=== PATIENT | male | born 1980 | race African-American/Black ===

== ENCOUNTER 2017-06-04 11:20 | Emergency (ER) | payer SELFPAY ==
[2017-06-04] MEDS ORDERED: Nitroglycerin 2% Ointment 1 INCH/1 GM Packet ONE (12:17)
[2017-06-04 12:37] LABS: #Eosinphils 0.2 thou/uL (0.0-0.7); #Lymphocytes 2.9 thou/uL (1.20-3.40); #Monocytes 0.7 thou/uL (0.11-0.59); #Neutrophils 4.7 thou/uL (1.40-6.50); %Basophils 0.4 % (0.0-1.0); %Eosinophils 2.7 % (0.0-10.0); %Lymphocytes 33.5 % (21.0-51.0); %Monocytes 8.5 % (0.0-10.0); Hematocrit 51.5 % (42.0-52.0); Mean Platelet Volume 8.7 fL (7.4-10.4); Red Blood Cell (RBC) Count 5.95 mill/uL (4.70-6.10); White Blood Cell (WBC) Count 8.6 thou/uL (4.8-10.8)
[2017-06-04 13:08] LABS: ALT (SGPT) 9 U/L (8-55); AST (SGOT) 15 U/L (5-34); Alkaline Phosphatase 96 U/L (40-150); Anion Gap 9 mmol/L (10-20); BUN (Urea Nitrogen) 12 mg/dL (8.9-20.6); Bilirubin, Total 0.3 mg/dL (0.2-1.2); CK (CPK) 241 U/L (30-200); Calc. Creatinine Clearance 0 mL/min (70-130); Calcium 9.2 mg/dL (7.8-10.44); Carbon Dioxide 28 mmol/L (22-29); Chloride 102 mmol/L (98-107); Estimated GFR-MDRD Greater than 90; Globulin 3.8 g/dL (2.4-3.5); Protein, Total 7.9 g/dL (6.0-8.3)
[2017-06-04 13:10] LABS: Troponin I 0.011 ng/mL (< 0.028)
[2017-06-04 14:16] LABS: Bilirubin Negative (Negative); Blood, Urine Negative (Negative); Glucose, Urine (Dipstick) Negative (Negative); Ketone, Urine Negative (Negative); Nitrite Negative (Negative); Protein, Urine (Dipstick) Negative (Neg-Trace)
[2017-06-04 14:30] LABS: Amphetamine Not Detected (NotDetected); Methadone Not Detected (NotDetected); Methamphetamine Detected (NotDetected)
--- NOTE | 2017-06-04 15:23 | CT ---
HEAD CT WITHOUT CONTRAST: Date: 06/04/17 COMPARISON: None. HISTORY: Left-sided weakness, high blood pressure, left frontal headache. TECHNIQUE: Serial axial CT imaging at 5 mm intervals from vertex through skull base without contrast. FINDINGS: Imaged paranasal sinuses and mastoid air cells are well aerated. There is no displaced calvarial frac ture. There is no intracranial hemorrhage, midline shift, mass effect, or ventricular enlargement. IMPRESSION: No intracranial hemorrhage or displaced calvarial fracture. POS: [facility]
== END 2017-06-04 14:40 | disposition home or self-care (01) ==
LOC: ERS 11:20
DX: F12.10 Cannabis abuse, uncomplicated (principal); F14.10 Cocaine abuse, uncomplicated; F16.10 Hallucinogen abuse, uncomplicated; I10 Essential (primary) hypertension; F17.210 Nicotine dependence, cigarettes, uncomplicated
CPT/HCPCS: 70450; 80053; 80306; 81003; 82553; 84484; 85025; 93005; 99406

== ENCOUNTER 2017-12-23 18:59 | Emergency (ER) | payer SELFPAY | END 2017-12-23 19:55 | LOC: ERS 18:59 | DX: F16.10 Hallucinogen abuse, uncomplicated (principal); I10 Essential (primary) hypertension; F17.210 Nicotine dependence, cigarettes, uncomplicated; Z71.6 Tobacco abuse counseling | CPT/HCPCS: 99406 ==

== ENCOUNTER 2017-12-30 22:16 | Emergency (ER) | payer SELFPAY | END 2017-12-30 23:51 | LOC: ERS 22:16 | DX: F16.10 Hallucinogen abuse, uncomplicated (principal); I10 Essential (primary) hypertension; F17.210 Nicotine dependence, cigarettes, uncomplicated; Z71.6 Tobacco abuse counseling | CPT/HCPCS: 93005; 99406 ==

== ENCOUNTER 2018-01-02 20:37 | Emergency (ER) | payer SELFPAY | END 2018-01-02 21:30 | disposition home or self-care (01) | LOC: ERS 20:37 | DX: I10 Essential (primary) hypertension (principal); F17.210 Nicotine dependence, cigarettes, uncomplicated; Z71.6 Tobacco abuse counseling | CPT/HCPCS: 93005 ==

== ENCOUNTER 2018-02-06 20:17 | Emergency (ER) | payer SELFPAY ==
[2018-02-06] MEDS ORDERED: Lorazepam 2 MG/ML VIAL ONE (20:47)
[2018-02-06 21:08] LABS: #Basophils 0.1 thou/uL (0.0-0.2); #Eosinphils 0.2 thou/uL (0.0-0.7); #Lymphocytes 3.2 thou/uL (1.20-3.40); #Monocytes 0.7 thou/uL (0.11-0.59); #Neutrophils 4.3 thou/uL (1.40-6.50); %Basophils 1.4 % (0.0-1.0); %Eosinophils 2.2 % (0.0-10.0); %Lymphocytes 37.8 % (21.0-51.0); %Monocytes 8.3 % (0.0-10.0); %Neutrophils 50.4 % (42.0-75.0); Hemoglobin 15.6 g/dL (14.0-18.0); Mean Corpuscular HGB CONC 33.6 g/dL (32.0-36.0); Mean Corpuscular Hemoglobin 27.3 pg (27.0-31.0); Mean Corpuscular Volume 81.2 fL (78.0-98.0); Mean Platelet Volume 8.9 fL (7.4-10.4); Platelet Count 135 thou/uL (130-400); RBC Distribution Width 13.1 % (11.5-14.5); Red Blood Cell (RBC) Count 5.73 mill/uL (4.70-6.10); White Blood Cell (WBC) Count 8.6 thou/uL (4.8-10.8)
[2018-02-06 21:32] LABS: ALT (SGPT) 13 U/L (8-55); AST (SGOT) 17 U/L (5-34); Albumin 4.5 g/dL (3.5-5.0); Alkaline Phosphatase 85 U/L (40-150); Anion Gap 13 mmol/L (10-20); BUN (Urea Nitrogen) 17 mg/dL (8.9-20.6); Bilirubin, Total 0.3 mg/dL (0.2-1.2); CK (CPK) 363 U/L (30-200); Calc. Creatinine Clearance 0 mL/min (70-130); Calcium 9.7 mg/dL (7.8-10.44); Carbon Dioxide 25 mmol/L (22-29); Chloride 107 mmol/L (98-107); Estimated GFR-MDRD 67; Globulin 3.8 g/dL (2.4-3.5); Glucose 98 mg/dL (70-105); Potassium 3.4 mmol/L (3.5-5.1); Protein, Total 8.3 g/dL (6.0-8.3); Sodium 142 mmol/L (136-145)
[2018-02-06 21:35] LABS: CKMB 2.3 ng/mL (0-6.6); Troponin I Less than 0.010 ng/mL (< 0.028)
== END 2018-02-06 22:19 | disposition home or self-care (01) ==
LOC: ERS 20:17
DX: F12.10 Cannabis abuse, uncomplicated (principal); I10 Essential (primary) hypertension; F17.210 Nicotine dependence, cigarettes, uncomplicated
CPT/HCPCS: 80053; 82553; 84484; 85025; 93005; 96361; 96374; J2060

== ENCOUNTER 2020-08-08 23:28 | Emergency (ER) | payer SELFPAY | END 2020-08-09 00:05 | LOC: ERS 23:28 | DX: Z02.89 Encounter for other administrative examinations (principal); I10 Essential (primary) hypertension | CPT/HCPCS: 99283 ==

== ENCOUNTER 2021-05-01 16:05 | Inpatient (IN) | payer OTHER, SELFPAY ==
[~2021-05-01 16:05] MED LIST: Iopamidol-370 76% 500 ML 1 ML ONE
[2021-05-01 16:22] LABS: #Eosinphils 0.1 thou/uL (0.0-0.7); #Lymphocytes 1.9 thou/uL (1.20-3.40); #Neutrophils 6.6 thou/uL (1.40-6.50); %Basophils 0.1 % (0.0-1.0); %Eosinophils 1.2 % (0.0-10.0); %Lymphocytes 19.5 % (21.0-51.0); %Neutrophils 69.2 % (42.0-75.0); Hemoglobin 13.6 g/dL (14.0-18.0); Mean Corpuscular HGB CONC 32.6 g/dL (32.0-36.0); Mean Corpuscular Hemoglobin 27.6 pg (27.0-31.0); Mean Corpuscular Volume 84.6 fL (78.0-98.0); Mean Platelet Volume 9.5 fL (7.4-10.4); Platelet Count 208 thou/uL (130-400); RBC Distribution Width 15.3 % (11.5-14.5); Red Blood Cell (RBC) Count 4.94 mill/uL (4.70-6.10); White Blood Cell (WBC) Count 9.6 thou/uL (4.8-10.8)
[2021-05-01 16:44] LABS: ALT (SGPT) 67 U/L (8-55); AST (SGOT) 60 U/L (5-34); Albumin 3.7 g/dL (3.5-5.0); Alkaline Phosphatase 82 U/L (40-110); Anion Gap 12 mmol/L (10-20); BUN (Urea Nitrogen) 9 mg/dL (8.9-20.6); Bilirubin, Total 1.4 mg/dL (0.2-1.2); Calc. Creatinine Clearance 0 mL/min (70-130); Carbon Dioxide 23 mmol/L (22-29); Chloride 101 mmol/L (98-107); Globulin 6.3 g/dL (2.4-3.5); Glucose 94 mg/dL (70-105); Lipase 17 U/L (8-78); Potassium 3.2 mmol/L (3.5-5.1); Sodium 133 mmol/L (136-145)
[2021-05-01] MEDS ORDERED: Aspirin 325 MG TAB ONE (16:49)
[2021-05-01 16:59] LABS: CKMB 2.8 ng/mL (0-6.6)
[2021-05-01] MEDS ORDERED: Acetaminophen 500 MG TAB ONE (16:59)
[2021-05-01] MEDS ORDERED: Senokot S 8.6-50 MG TAB PO PRN (17:39)
[2021-05-01] MEDS ORDERED: Guaifenesin DM 100-10/5 ML UDCUP PO PRN (17:39)
[2021-05-01] MEDS ORDERED: Bisacodyl 10 MG SUPP PR PRN (17:39)
[2021-05-01] MEDS ORDERED: Ondansetron PF 4 MG/2 ML Vial IVP PRN (17:39)
[2021-05-01] MEDS ORDERED: Communication Order-Pharmacy FS ONE (17:39)
[2021-05-01] MEDS ORDERED: Calcium Carbonate 500 MG ChewTAB PO PRN (17:39)
[2021-05-01 17:51] LABS: SARS-CoV-2 NAA Rapid Test Not Detected (NotDetected)
[2021-05-01 18:38] LABS: Troponin I 0.101 ng/mL (< 0.028)
[2021-05-01 18:50] LABS: Hemoglobin 12.8 g/dL (14.0-18.0); Platelet Count 184 thou/uL (130-400)
[2021-05-01] MEDS ORDERED: cefTRIAXone\\ROCEPHIN 1 GM VIAL ONE (18:50)
[2021-05-01] MEDS ORDERED: Potassium Chloride 20 MEQ TAB ONE (20:06)
[2021-05-01 20:26] LABS: Amphetamine Detected (NotDetected); Barbiturates Screen Not Detected (NotDetected); Benzodiazepine Screen Not Detected (NotDetected); Cocaine Metabolite Screen Not Detected (NotDetected); Methadone Not Detected (NotDetected); Methamphetamine Detected (NotDetected); Opiate Screen Not Detected (NotDetected); Oxycodone Screen Not Detected (NotDetected); Phencyclidine (PCP) Detected (NotDetected); THC/Cannabinoid Screen Detected (NotDetected); Tricyclic Screen Not Detected (NotDetected)
[2021-05-01 20:28] LABS: Alcohol Less than 10 mg/dL (Less than 10); Salicylate Less than 8.0 mg/dL (15.0-30.0)
[2021-05-01 20:43] LABS: HBCM Index 0.05 S/CO (0-0.79); HBSAg Index 0.21 S/CO (0-0.99); Hep A IgM AB Non-Reactive (NonReactive); Hep A IgM S/CO 0.08 S/CO (0-0.79); Hep B Surf Ag Non-Reactive S/CO (NonReactive); Hep C IgG Ab Non-Reactive (NonReactive); Hep C Index 0.08 S/CO (0-0.79); Hepatitis B Core IgM Abs Non-Reactive (NonReactive)
[2021-05-01 21:46] VITALS: BMI 31.7
[2021-05-01 22:22] LABS: Troponin I 0.103 ng/mL (< 0.028)
[2021-05-01] MEDS ORDERED: Enoxaparin Sodium 100 MG/ML SYRINGE SC SCH (22:30)
[2021-05-01] MEDS ORDERED: Cefdinir 300 MG CAP PO SCH (22:30)
[2021-05-01] MEDS: Benzonatate 100 MG CAP PO SCH (22:39)
[2021-05-01] MEDS: guaiFENesin ER 600 MG TAB PO SCH (22:41)
[2021-05-01] MEDS: Nitroglycerin 2% Ointment 1 INCH/1 GM Packet TOP SCH (22:41)
[2021-05-01] MEDS: Ibuprofen 200 MG TAB PO SCH (22:41)
[2021-05-01] MEDS: Acetaminophen 325 MG TAB PO PRN (23:37)
[2021-05-01] MEDS ORDERED: Morphine 4 MG/ML VIAL SLOW IVP SCH (23:45)
[2021-05-02] MEDS ORDERED: Lorazepam 2 MG/ML VIAL SLOW IVP SCH (00:45)
[2021-05-02] MEDS: hydrALAZINE 25 MG TAB PO SCH ×4 (01:19→21:21)
[2021-05-02] MEDS: Colchicine 0.6 MG TAB PO SCH ×3 (01:22→21:20)
[2021-05-02 01:45] LABS: Troponin I 0.095 ng/mL (< 0.028)
[2021-05-02 06:17] LABS: #Eosinphils 0.1 thou/uL (0.0-0.7); #Lymphocytes 2.1 thou/uL (1.20-3.40); #Monocytes 0.9 thou/uL (0.11-0.59); #Neutrophils 4.2 thou/uL (1.40-6.50); %Eosinophils 0.9 % (0.0-10.0); %Monocytes 12.1 % (0.0-10.0); %Neutrophils 57.9 % (42.0-75.0); Hemoglobin 12.9 g/dL (14.0-18.0); Mean Corpuscular HGB CONC 32.8 g/dL (32.0-36.0); Mean Corpuscular Hemoglobin 27.7 pg (27.0-31.0); Mean Corpuscular Volume 84.3 fL (78.0-98.0); Mean Platelet Volume 9.7 fL (7.4-10.4); Platelet Count 164 thou/uL (130-400); RBC Distribution Width 15.4 % (11.5-14.5); Red Blood Cell (RBC) Count 4.67 mill/uL (4.70-6.10); White Blood Cell (WBC) Count 7.3 thou/uL (4.8-10.8)
[2021-05-02 06:39] LABS: Anion Gap 10 mmol/L (10-20); BUN (Urea Nitrogen) 11 mg/dL (8.9-20.6); Calc. Creatinine Clearance 143 mL/min (70-130); Calcium 8.7 mg/dL (7.8-10.44); Carbon Dioxide 25 mmol/L (22-29); Cardiac Risk 4.3 (Less than 4.5); Chloride 102 mmol/L (98-107); Cholesterol 146 mg/dl (< 200 Desired); Glucose 86 mg/dL (70-105); HDL Cholesterol 34 mg/dL (>60 Neg Risk); LDL Cholesterol, Calculated 100 mg/dL; Potassium 3.6 mmol/L (3.5-5.1); Sodium 133 mmol/L (136-145); Triglycerides 61 mg/dL (Less than 150)
[2021-05-02] MEDS: Nitroglycerin 2% Ointment 1 INCH/1 GM Packet TOP SCH ×3 (07:12→21:21)
[2021-05-02] MEDS: NIFEdipine XL 30 MG TAB PO SCH (09:14)
[2021-05-02] MEDS: Aspirin 325 mg Enteric Coated Tablet PO SCH (09:14)
[2021-05-02] MEDS: guaiFENesin ER 600 MG TAB PO SCH ×2 (09:14→21:20)
[2021-05-02] MEDS: Cefdinir 300 MG CAP PO SCH ×2 (09:14→21:20)
[2021-05-02] MEDS: Benzonatate 100 MG CAP PO SCH ×3 (09:14→21:21)
[2021-05-02] MEDS: Enoxaparin Sodium 100 MG/ML SYRINGE SC SCH ×2 (09:14→21:15)
[2021-05-02] MEDS: Ibuprofen 200 MG TAB PO SCH ×3 (09:15→21:20)
[2021-05-02] MEDS ORDERED: ADENOSINE 60 MG/20 ML VIAL ONE (12:58)
[2021-05-02] MEDS: Atorvastatin Calcium 40 MG TAB PO SCH (21:20)
[2021-05-02] MEDS: Metoprolol Tartrate 25 MG TAB PO SCH (21:20)
[2021-05-03] MEDS: Acetaminophen 325 MG TAB PO PRN (04:18)
[2021-05-03] MEDS: Nitroglycerin 2% Ointment 1 INCH/1 GM Packet TOP SCH ×3 (06:24→22:57)
[2021-05-03 06:39] LABS: Anion Gap 12 mmol/L (10-20); BUN (Urea Nitrogen) 12 mg/dL (8.9-20.6); Calc. Creatinine Clearance 149 mL/min (70-130); Calcium 8.4 mg/dL (7.8-10.44); Carbon Dioxide 24 mmol/L (22-29); Chloride 101 mmol/L (98-107); Glucose 101 mg/dL (70-105); Potassium 3.6 mmol/L (3.5-5.1); Sodium 133 mmol/L (136-145)
[2021-05-03] MEDS: Aspirin 325 mg Enteric Coated Tablet PO SCH (08:51)
[2021-05-03] MEDS: Enoxaparin Sodium 100 MG/ML SYRINGE SC SCH ×2 (08:51→20:27)
[2021-05-03] MEDS: NIFEdipine XL 30 MG TAB PO SCH (08:51)
[2021-05-03] MEDS: Colchicine 0.6 MG TAB PO SCH ×2 (08:51→21:05)
[2021-05-03] MEDS: Benzonatate 100 MG CAP PO SCH ×3 (08:51→20:27)
[2021-05-03] MEDS: Cefdinir 300 MG CAP PO SCH ×2 (08:51→20:27)
[2021-05-03] MEDS: hydrALAZINE 25 MG TAB PO SCH ×3 (08:52→20:27)
[2021-05-03] MEDS: Metoprolol Tartrate 25 MG TAB PO SCH ×2 (08:52→20:26)
[2021-05-03] MEDS: Ibuprofen 200 MG TAB PO SCH ×3 (08:52→20:27)
[2021-05-03] MEDS: guaiFENesin ER 600 MG TAB PO SCH ×2 (08:52→20:26)
[2021-05-03] MEDS: Atorvastatin Calcium 40 MG TAB PO SCH (20:27)
[2021-05-04] MEDS: Acetaminophen 325 MG TAB PO PRN (03:34)
[2021-05-04 07:51] LABS: Hemoglobin 12.6 g/dL (14.0-18.0); Platelet Count 186 thou/uL (130-400)
[2021-05-04 07:55] LABS: Magnesium 1.9 mg/dL (1.6-2.6)
[2021-05-04] MEDS: hydrALAZINE 25 MG TAB PO SCH ×3 (08:22→21:50)
[2021-05-04] MEDS: Cefdinir 300 MG CAP PO SCH ×2 (08:22→21:51)
[2021-05-04] MEDS: Aspirin 325 mg Enteric Coated Tablet PO SCH (08:22)
[2021-05-04] MEDS: Colchicine 0.6 MG TAB PO SCH ×2 (08:22→21:51)
[2021-05-04] MEDS: guaiFENesin ER 600 MG TAB PO SCH ×2 (08:22→21:49)
[2021-05-04] MEDS: Metoprolol Tartrate 25 MG TAB PO SCH (08:22)
[2021-05-04] MEDS: NIFEdipine XL 30 MG TAB PO SCH (08:22)
[2021-05-04] MEDS: Benzonatate 100 MG CAP PO SCH ×3 (08:22→21:50)
[2021-05-04] MEDS: Enoxaparin Sodium 100 MG/ML SYRINGE SC SCH ×2 (08:22→21:48)
[2021-05-04] MEDS: Ibuprofen 200 MG TAB PO SCH ×3 (08:22→21:50)
[2021-05-04] MEDS: Nitroglycerin 2% Ointment 1 INCH/1 GM Packet TOP SCH ×3 (08:23→23:42)
[2021-05-04] MEDS: Communication Order-Pharmacy FS SCH (10:42)
[2021-05-04] MEDS ORDERED: Carvedilol 3.125 MG TAB PO SCH (11:15)
[2021-05-04] MEDS: Carvedilol 3.125 MG TAB PO SCH (16:03)
[2021-05-04] MEDS: Atorvastatin Calcium 40 MG TAB PO SCH (21:50)
[2021-05-05] MEDS: Colchicine 0.6 MG TAB PO SCH (06:27)
[2021-05-05] MEDS: Ibuprofen 200 MG TAB PO SCH (06:28)
[2021-05-05] MEDS: Carvedilol 3.125 MG TAB PO SCH (06:28)
[2021-05-05] MEDS: NIFEdipine XL 30 MG TAB PO SCH (06:29)
[2021-05-05] MEDS: hydrALAZINE 25 MG TAB PO SCH (06:29)
[2021-05-05] MEDS: Cefdinir 300 MG CAP PO SCH (06:29)
[2021-05-05] MEDS: Aspirin 325 mg Enteric Coated Tablet PO SCH (06:29)
[2021-05-05] MEDS: Benzonatate 100 MG CAP PO SCH (06:29)
[2021-05-05] MEDS: guaiFENesin ER 600 MG TAB PO SCH (06:30)
[2021-05-05] MEDS ORDERED: Heparin 10,000 UNITS/ 10 ML VIAL ONE (06:47)
[2021-05-05] MEDS ORDERED: Verapamil 5 MG/2 ML VIAL ONE (06:47)
[2021-05-05] MEDS ORDERED: Lidocaine 1% (PF) 30 ML VIAL ONE (06:48)
[2021-05-05] MEDS ORDERED: Nitroglycerin 100MG/250ML BOT 250 ML ONE (06:48)
[2021-05-05 06:55] LABS: Hemoglobin 13.4 g/dL (14.0-18.0)
[2021-05-05 07:08] LABS: Calc. Creatinine Clearance 143 mL/min (70-130)
[2021-05-05] MEDS: Nitroglycerin 2% Ointment 1 INCH/1 GM Packet TOP SCH (07:12)
[2021-05-05] MEDS ORDERED: Midazolam HCl 2 mg/2 ml Vial ONE (07:23)
[2021-05-05] MEDS ORDERED: Lisinopril 5 MG TAB PO SCH (09:00)
[2021-05-05] MEDS: Communication Order-Pharmacy FS SCH (10:12)
[2021-05-05] MEDS ORDERED: Iopamidol 370 76% 100 ML VIAL ONE (10:36)
[2021-05-05] MEDS ORDERED: Iopamidol 370 76% 50 ML VIAL FS ONE (10:36)
[2021-05-05 12:37] VITALS: BP 138/79; TEMP 97.5
== END 2021-05-05 13:40 | disposition home or self-care (01) | DRG 871 ==
LOC: ERS 16:05 → 2SW 17:32 → ERHOLD 20:44 → 2SW 21:25 → OBSVTOIN 05-02 16:57
PROVIDERS: ADMIT Internal Medicine; ATTEND Internal Medicine
PROC: 4A023N7 Measurement of Cardiac Sampling and Pressure, Left Heart, Percutaneous Approach (ICD-10-PCS; principal; 2021-05-05)
PROC: B2111ZZ Fluoroscopy of Multiple Coronary Arteries using Low Osmolar Contrast (ICD-10-PCS; 2021-05-05)
DX: A41.9 Sepsis, unspecified organism (principal); I21.A1 Myocardial infarction type 2; E87.1 Hypo-osmolality and hyponatremia; I42.9 Cardiomyopathy, unspecified; I50.20 Unspecified systolic (congestive) heart failure; F17.210 Nicotine dependence, cigarettes, uncomplicated; J01.90 Acute sinusitis, unspecified; I11.0 Hypertensive heart disease with heart failure; E66.9 Obesity, unspecified; F15.10 Other stimulant abuse, uncomplicated; D64.9 Anemia, unspecified; Z68.31 Body mass index [BMI] 31.0-31.9, adult
CPT/HCPCS: 36415; 71045; 71275; 78452; 80048; 80053; 80061; 80074; 80306; 80307; 82553; 82565; 83605; 83690; 83735; 84484; 85014; 85018; 85025; 85049; 87040; 93005; 93010; 93017; 93306; 93458; 94640; 96365; 96374; 96375; 99152; 99153; A9500; G0378; J0153; J0696; J1644; J1650; J2001; J2060; J2250; J2270; J7620; Q9967; U0002

== ENCOUNTER 2021-07-11 01:46 | Emergency (ER) | payer OTHER ==
[2021-07-11] MEDS ORDERED: Boostrix 0.5 ML (Tdap) VIAL ONE (02:06)
[2021-07-11] MEDS ORDERED: Ibuprofen 200 MG TAB ONE (02:43)
== END 2021-07-11 02:46 ==
LOC: ERS 01:46
DX: Z02.89 Encounter for other administrative examinations (principal); S91.311A Laceration without foreign body, right foot, initial encounter; I10 Essential (primary) hypertension
CPT/HCPCS: 90471; 90715; 93005

== ENCOUNTER 2022-02-22 08:46 | Observation (INO) | payer OTHER, SELFPAY ==
[2022-02-22 09:25] LABS: ALT (SGPT) 52 U/L (8-55); AST (SGOT) 48 U/L (5-34); Albumin 3.2 g/dL (3.5-5.0); Alkaline Phosphatase 62 U/L (40-110); Anion Gap 12 mmol/L (10-20); BUN (Urea Nitrogen) 11 mg/dL (8.9-20.6); Bilirubin, Total 0.5 mg/dL (0.2-1.2); Calc. Creatinine Clearance 0 mL/min (70-130); Calcium 8.5 mg/dL (7.8-10.44); Carbon Dioxide 24 mmol/L (22-29); Chloride 103 mmol/L (98-107); Estimated GFR 87; Globulin 6.5 g/dL (2.4-3.5); Glucose 82 mg/dL (70-105); Lipase 33 U/L (8-78); Potassium 3.5 mmol/L (3.5-5.1); Protein, Total 9.7 g/dL (6.0-8.3); Sodium 135 mmol/L (136-145)
[2022-02-22 09:26] LABS: Band 5 % (5-11); Eosinophils 7 % (0-10); Hemoglobin 12.4 g/dL (14.0-18.0); Lymphocytes 42 % (21-51); MDiff Complete? YES; Mean Corpuscular HGB CONC 31.8 g/dL (32.0-36.0); Mean Corpuscular Hemoglobin 26.3 pg (27.0-31.0); Mean Corpuscular Volume 82.7 fL (78.0-98.0); Mean Platelet Volume 10.4 fL (7.4-10.4); Monocytes 13 % (0-10); Neutrophil 26 % (42-75); Platelet Count 105 thou/uL (130-400); Platelet Morphology Comment Appears Decreased; Polychromasia SLIGHT = 2-3 cells (100X) (0-2/hpf); RBC Distribution Width 15.2 % (11.5-14.5); Reactive Lymphocytes 7 % (0-10); Red Blood Cell (RBC) Count 4.72 mill/uL (4.70-6.10); White Blood Cell (WBC) Count 4.2 thou/uL (4.8-10.8)
[2022-02-22] MEDS ORDERED: Acetaminophen 325 MG TAB PO PRN (12:56)
[2022-02-22] MEDS ORDERED: Iopamidol 370 76% 100 ML VIAL ONE (14:31)
[2022-02-22 15:28] VITALS: BMI 30.1
[2022-02-22] MEDS ORDERED: Nitroglycerin 0.4 MG TAB (25 Tab Bottle) SL PRN (15:36)
[2022-02-22] MEDS ORDERED: Aspirin 325 MG TAB PO SCH (15:36)
[2022-02-22 18:03] LABS: Troponin I 0.012 ng/mL (< 0.028)
[2022-02-23] MEDS ORDERED: Aspirin 325 mg Enteric Coated Tablet PO SCH (09:00)
[2022-02-23 12:00] VITALS: BP 135/81; TEMP 98
== END 2022-02-23 13:15 | disposition home or self-care (01) ==
LOC: ERS 08:46 → EEVIPCON 10:57 → 2NO 10:57
PROVIDERS: ADMIT Internal Medicine; ATTEND Internal Medicine
DX: R55 Syncope and collapse (principal); I95.9 Hypotension, unspecified; D61.818 Other pancytopenia; E87.1 Hypo-osmolality and hyponatremia; E88.09 Other disorders of plasma-protein metabolism, not elsewhere classified; R07.81 Pleurodynia; F17.210 Nicotine dependence, cigarettes, uncomplicated; I25.2 Old myocardial infarction; I11.0 Hypertensive heart disease with heart failure; I50.20 Unspecified systolic (congestive) heart failure; I07.1 Rheumatic tricuspid insufficiency; Z79.82 Long term (current) use of aspirin; Z79.899 Other long term (current) drug therapy; Z20.822 Contact with and (suspected) exposure to COVID-19
CPT/HCPCS: 36415; 70450; 71045; 71275; 80053; 83690; 83880; 84484; 85025; 85379; 93005; 93306; 94760; G0378; Q9967; U0003; U0005